=== PATIENT | male | born 1945 | race Caucasian/White ===

== ENCOUNTER 2016-11-10 15:01 | Inpatient (IN) | payer MEDICARE, OTHER ==
--- NOTE | 2016-11-10 17:38 | Emergency Department Report ---
HPI - General Chief Complaint: Seizure Time Seen by Provider: 11/10/16 16:59 - HPI HPI: This is a 71-year-old male who presents to the emergency department by EMS, sent in by his caregiver, with a complaint that it patient had a witnessed seizure last approximately 1 minute. The patient does not apparently have any history of seizures. Patient is a poor historian secondary to his dementia or possibly secondary to a postictal state. Patient does have a history of asthma, dementia, diabetes, hypertension and kidney stones. Patient is currently AAO 1. ED Past Medical Hx - Past Medical History Previous Medical History?: Yes Hx Hypertension: Yes Hx Diabetes: Yes Hx Asthma: Yes Hx Dementia: Yes Additional medical history: kidney stones - Social History Smoking Status: Never Smoker Substance Use Type: None ED Review of Systems ROS: Stated complaint: SEIZURES Other details as noted in HPI Comment: Unobtainable due to pts medical conditions Physical Exam - Physical Exam Vital Signs: Vital Signs 11/10/16 16:03 Temperature 98.1 F Pulse Rate 55 L Respiratory 16 Rate Blood Pressure 158/90 O2 Sat by Pulse 98 Oximetry Physical Exam: GENERAL: Patient appears agitated and confused. HEENT: Normocephalic. Atraumatic. Extraocular motions are intact. Patient has moist mucous membranes. Pupils equal reactive to light bilaterally. NECK: Supple. Trachea is midline. CHEST/LUNGS: Clear to auscultation. There is no respiratory distress noted. HEART/CARDIOVASCULAR: Regular. There is no tachycardia. There is no gallop rub or murmur. ABDOMEN: Abdomen is soft, nontender. Patient has normal bowel sounds. There is no abdominal distention. SKIN: Warm and dry. NEURO: Patient is awake but confused. AAO 1. Patient follows some commands. Withdraws to painful stimuli. MUSCULOSKELETAL: There is no tenderness or deformity. There is no limitation range of motion. There is no evidence of acute injury. ED Course Vital Signs 11/10/16 16:03 Temperature 98.1 F Pulse Rate 55 L Respiratory 16 Rate Blood Pressure 158/90 O2 Sat by Pulse 98 Oximetry ED Medical Decision Making - Lab Data Result diagrams: 11/10/16 18:10 11/10/16 18:10 - EKG Data -: EKG Interpreted by Wy EKG shows normal: sinus rhythm, axis, intervals, QRS complexes (right bundle- branch block), ST-T waves (nonspecific ST-T changes) Rate: normal - EKG Data When compared to previous EKG there are: previous EKG unavailable Interpretation: other (sinus rhythm, right bundle branch block) - Radiology Data Radiology results: report reviewed CT of the head does not show any acute process including no hemorrhage, mass, shift, diffuse edema or skull fracture. - Medical Decision Making 71-year-old male presents the emergency department sent in by his advertising display rotator after there was a witnessed seizure without a previous history of seizures. When I saw the patient he was awake but confused and appeared agitated. As his workup began the patient had another witnessed seizure. He was given 2 mg of Ativan and had a postictal period of about 45 minutes. It appears that he does have some history of dementia so confusion might be his baseline but there are definite was a postictal period where he was sleeping and/or less agitated. Patient labs are mostly unremarkable and do not seem to show any etiology of the patient's seizures. He was given IV Keppra as a loading dose. CT of the head does not show any bleed, shift, mass or any acute process. Urine drug screen is negative. There is no urinary tract infection. Patient will be admitted to hospital for further evaluation and treatment and has been accepted for admission by the hospitalist, Dr. Schmidt. - Differential Diagnosis epilepsy, brain bleed, CVA, hypoglycemia, [place] Critical Care Time: No Critical care attestation.: If time is entered above; I have spent that time in minutes in the direct care of this critically ill patient, excluding procedure time. ED Disposition Clinical Impression: Recurrent seizures Hypertension Qualifiers: Hypertension type: essential hypertension Qualified Code(s): I10 - Essential ( primary) hypertension Altered mental status Qualifiers: Altered mental status type: unspecified Qualified Code(s): R41.82 - Altered mental status, unspecified Disposition: OP ADMITTED IP TO THIS HOSP Is pt being admited?: Yes Condition: Stable Instructions: Hypertension (ED) Time of Disposition: 02:09
[2016-11-10] MEDS ORDERED: ATIVAN IV ONE ×2 (17:39→18:17)
[2016-11-10 18:24] LABS: Basophils % (Auto) 0.9 % (0.0-1.8); Eosinophils % (Auto) 0.4 % (0.0-4.3); Hematocrit 34.8 % (35.5-45.6); Hemoglobin 11.4 gm/dl (11.8-15.2); Mean Corpuscular HGB Conc 33 % (32-34); Mean Corpuscular Volume 78 fl (84-94); Platelet Count 279 K/mm3 (140-440); Red Blood Count 4.48 M/mm3 (3.65-5.03); Red Cell Distribution Width 19.2 % (13.2-15.2); White Blood Count 8.5 K/mm3 (4.5-11.0)
[2016-11-10 18:25] LABS: Mean Corpuscular Hemoglobin 26 pg (28-32)
[2016-11-10 18:47] LABS: Alanine Aminotransferase 7 units/L (7-56); Albumin 3.2 g/dL (3.9-5); Albumin/Globulin Ratio 0.8 %; Alkaline Phosphatase 68 units/L (35-129); Anion Gap 16 mmol/L; BUN/Creatinine Ratio 18.33; Bilirubin,Total 0.4 mg/dL (0.1-1.2); Blood Urea Nitrogen 11 mg/dL (9-20); Calcium 8.9 mg/dL (8.4-10.2); Carbon Dioxide 28 mmol/L (22-30); Chloride 93.4 mmol/L (98-107); Glucose 96 mg/dL (75-100); Potassium 3.4 mmol/L (3.6-5.0); Sodium 134 mmol/L (137-145); Total Protein 7.3 g/dL (6.3-8.2)
[2016-11-10 19:02] LABS: Urine Drugs of Abuse Note Disclamer
[2016-11-10 19:11] LABS: Bacteria,Urine 1+ /HPF (Negative); Bilirubin,Urine NEG (Negative); Blood,Urine SM (Negative); Ketones,Urine NEG (Negative); Leukocyte Esterase,Urine LG (Negative); Mucus,Urine FEW /HPF; Nitrite,Urine NEG (Negative); Protein,Urine <15 mg/dL mg/dL (Negative); Urobilinogen,Urine < 2.0 mg/dL (<2.0)
[2016-11-10] MEDS ORDERED: APRESOLINE IV ONE (19:23)
[2016-11-10] MEDS ORDERED: KEPPRA 1,000 MG/NS 0.75% 100ML 1,000 MG/100 ML BAG IV ONE (19:23)
[2016-11-10] MEDS ORDERED: ATIVAN ONE ×2 (22:09→22:45)
[2016-11-11] MEDS ORDERED: HALDOL IM ONE (00:08)
--- NOTE | 2016-11-11 01:56 | Cat Scan Report ---
FINAL REPORT PROCEDURE: CT HEAD/BRAIN WO CON TECHNIQUE: Computerized tomography of the head was performed without contrast material. HISTORY: Seizure COMPARISON: No prior studies are available for comparison. FINDINGS: Skull and scalp: Normal. Paranasal sinuses: Mild opacification of the ethmoid sinuses. Almost complete opacification of the right maxillary sinus.. Ventricles and subarachnoid spaces: Normal. Cerebrum: No evidence of hemorrhage, acute infarction or mass . Cerebellum and brainstem: No evidence of hemorrhage, acute infarction or mass. Vasculature: Normal. Comments: None. IMPRESSION: There is no evidence of an acute intracranial process. Moderate sinusitis as discussed.
[2016-11-11] MEDS ORDERED: MILK OF MAGNESIA PO PRN (03:03)
[2016-11-11] MEDS ORDERED: ZOFRAN IV PRN (03:03)
[2016-11-11] MEDS ORDERED: TYLENOL PO PRN (03:03)
[2016-11-11] MEDS ORDERED: DULCOLAX PR PRN (03:03)
[2016-11-11] MEDS ORDERED: ATIVAN IV PRN (03:03)
--- NOTE | 2016-11-11 03:06 | History and Physical Report ---
History of Present Illness Date of examination: 11/11/16 History of present illness: 71-year-old man with history of hypertension, diabetes, dementia ,asthma was brought to the emergency room because he had a seizure. While he was here in the emergency room he had another seizure, the patient is postictal, review of system is unobtainable. Patient was given IV Ativan, loaded with Keppra in the emergency room PAST SURGICAL HISTORY: Unknown SOCIAL HISTORY: Unknown FAMILY HISTORY: Unknown Medications and Allergies Allergies Allergy/AdvReac Type Severity Reaction Status Date / Time No Known Allergies Allergy Unverified 11/10/16 16:06 Exam - Physical Exam Narrative exam: Gen. appearance: Patient lying in bed, no apparent distress HEENT: Normocephalic, atraumatic, pupils equally round and reactive to light, unable to do extraocular movement , and no sclericterus,. No JVD or thyromegaly or nodule,neck supple, no carotid bruit ,mucous membranes moist, no exudate or erythema Heart: S1, S2, regular rate and rhythm Lungs: Clear to auscultation bilaterally, breathing comfortable Abdomen: Positive bowel sounds, nontender, nondistended, no organomegaly Extremity: No edema, cyanosis, clubbing Skin: No rash, nodules, warm, dry Neuro: Sedated - Constitutional Vitals: Temp Pulse Resp BP Pulse Ox 98.1 F 76 14 177/145 96 11/10/16 16:03 11/10/16 19:50 11/10/16 18:46 11/10/16 19:50 11/10/16 18:46 Results - Labs CBC & Chem 7: 11/10/16 18:10 11/10/16 18:10 Labs: Abnormal lab results 11/10/16 11/10/16 11/10/16 Range/Units 18:10 18:10 18:10 Hgb 11.4 L (11.8-15.2) gm/dl Hct 34.8 L (35.5-45.6) % MCV 78 L (84-94) fl MCH 26 L (28-32) pg RDW 19.2 H (13.2-15.2) % Lymph % (Auto) 12.3 L (13.4-35.0) % Lymph # 1.1 L (1.2-5.4) K/mm3 Seg Neutrophils % 79.2 H (40.0-70.0) % Sodium 134 L (137-145) mmol/L Potassium 3.4 L (3.6-5.0) mmol/L Chloride 93.4 L (98-107) mmol/L Creatinine 0.6 L (0.8-1.5) mg/dL Albumin 3.2 L (3.9-5) g/dL Salicylates < 0.3 L (2.8-20.0) mg/dL - Imaging and Cardiology CT Scan - head: report reviewed Assessment and Plan New-onset seizures Hypertension Dementia Asthma Diabetes Admits medicine Start IV Ativan as needed. Seizure, consult neurology Start DVT prophylaxis, check figer sticks and initiate insulin sliding scale IV hydralazine as stated for blood pressure control
[2016-11-11] MEDS ORDERED: ROCEPHIN/NS 1 GM/50 ML 1 GM/50 ML BAG IV ONE (03:10)
[2016-11-11] MEDS ORDERED: D50W (25GM) IV PRN (03:15)
--- NOTE | 2016-11-11 06:42 | Admit Criteria Form ---
Admission Criteria Documentation: SEIZURE Clinical Indications for Admission to Inpatient Care (Place 'X' for any and all applicable criteria): Admission is indicated for seizure and ANY ONE of the following(1)(2)(3)(4)(5): [X]I. Inpatient admission required rather than observation care (Also use Seizure: Observation Care Criteria as appropriate) because of ANY ONE of the following: [ ]a) Altered mental status that is severe or persistent [ ]b) New focal neurologic deficit that is severe or persistent [ ]c) Metabolic disorder (eg, hypoglycemia, hyponatremia) that is severe or persistent [X]d) Recurrent seizure [ ]e) Outpatient antiseizure regimen cannot be established (eg , patient cannot tolerate medication, initiation requires inpatient care) [ ]f) Need for ongoing intravenous infusion of antiseizure medication [ ]g) Cardiac arrhythmias of immediate concern [ ]h) Cerebral bleeding, hydrocephalus, or vasospasm monitoring (14) [ ]i) Increased intracranial pressure or cerebral edema monitoring (15) [ ]j) Other treatment or monitoring requiring inpatient admission [ ]II. Status epilepticus [A] or repetitive seizures not controlled with emergent treatment (6)(8) [ ]III. Brain disorder (eg, tumor, edema, and hydrocephalus) that requiring monitoring or intervention available only at inpatient level of care. [ ]IV. Brain insult (eg, severe trauma, stroke, drug toxicity, or withdrawal) that requires monitoring or intervention available only at inpatient level of care (10)(11) Extended stay beyond goal length of stay may be needed for (22) [ ]a) Complications of status epilepticus [ ]b) Refractory status epilepticus [ ]c) Etiology-specific therapy for conditions such as DRINK WAITER infection, head injury,eclampsia, severe metabolic abnormalities, and brain tumor [ ]d) Residual neurologic damage, [ ]e) Initiation of significant change to anticonvulsant treatment [ ]f) Older patients (65 years or older) [ ]g) Patient requiring intubation (eg, to protect airway) The original [facility] content created by [employer] has been revised. The portions of the content which have been revised are identified through the use of italic text or in bold, and [facility] [employer] has neither reviewed nor approved the modified material. All other unmodified content is copyright [facility] [employer]. Please see references footnoted in the original [facility] edition 2016 Admission Criteria Met: Yes
--- NOTE | 2016-11-11 10:41 | Progress Note ---
Assessment and Plan Assessment and plan: 1. New-onset seizures. Seizure precautions. Continue Keppra for now. Ativan for breakthrough seizures. Check EEG and consider MRI. Neurology consult pending. 2. Hypertension. Resume antihypertensive medications. 3. Diabetes mellitus type 2. Continue Accu-Cheks and sliding scale insulin. 4. Acute encephalopathy. Etiology secondary to #1. Rule out infectious etiology. Supportive care. 5. Asthma. Stable. History Interval history: 71-year-old man with history of hypertension, diabetes, dementia ,asthma was brought to the emergency room because he had a seizure. While he was here in the emergency room he had another seizure, the patient is postictal, review of system is unobtainable. Patient was given IV Ativan, loaded with Keppra in the emergency room Hospitalist Physical - Constitutional Vitals: Temp Pulse Resp BP Pulse Ox 97.5 F L 50 L 18 159/78 99 11/11/16 10:13 11/11/16 10:13 11/11/16 10:13 11/11/16 10:13 11/11/16 10:13 General appearance: Present: no acute distress, well-nourished - EENT Eyes: Present: PERRL, EOM intact ENT: hearing intact, clear oral mucosa, dentition normal - Neck Neck: Present: supple, normal ROM - Respiratory Respiratory effort: normal Respiratory: bilateral: CTA - Cardiovascular Rhythm: regular Heart Sounds: Present: S1 & S2. Absent: gallop, rub - Extremities Extremities: no ischemia, No edema, Full ROM - Abdominal General gastrointestinal: soft, non-tender, non-distended, normal bowel sounds - Integumentary Integumentary: Present: clear, warm, dry - Neurologic Neurologic: CNII-XII intact, moves all extremities, other (somnolent and postictal) Results - Labs CBC & Chem 7: 11/10/16 18:10 11/10/16 18:10 Labs: Laboratory Last Values WBC 8.5 K/mm3 (4.5-11.0) 11/10/16 18:10 RBC 4.48 M/mm3 (3.65-5.03) 11/10/16 18:10 Hgb 11.4 gm/dl (11.8-15.2) L 11/10/16 18:10 Hct 34.8 % (35.5-45.6) L 11/10/16 18:10 MCV 78 fl (84-94) L 11/10/16 18:10 MCH 26 pg (28-32) L 11/10/16 18:10 MCHC 33 % (32-34) 11/10/16 18:10 RDW 19.2 % (13.2-15.2) H 11/10/16 18:10 Plt Count 279 K/mm3 (140-440) 11/10/16 18:10 Lymph % (Auto) 12.3 % (13.4-35.0) L 11/10/16 18:10 [place] % (Auto) 7.2 % (0.0-7.3) 11/10/16 18:10 Eos % (Auto) 0.4 % (0.0-4.3) 11/10/16 18:10 Baso % (Auto) 0.9 % (0.0-1.8) 11/10/16 18:10 Lymph # 1.1 K/mm3 (1.2-5.4) L 11/10/16 18:10 [place] # 0.6 K/mm3 (0.0-0.8) 11/10/16 18:10 Eos # 0.0 K/mm3 (0.0-0.4) 11/10/16 18:10 Baso # 0.1 K/mm3 (0.0-0.1) 11/10/16 18:10 Seg Neutrophils % 79.2 % (40.0-70.0) H 11/10/16 18:10 Seg Neutrophils # 6.8 K/mm3 (1.8-7.7) 11/10/16 18:10 Sodium 134 mmol/L (137-145) L 11/10/16 18:10 Potassium 3.4 mmol/L (3.6-5.0) L 11/10/16 18:10 Chloride 93.4 mmol/L (98-107) L 11/10/16 18:10 Carbon Dioxide 28 mmol/L (22-30) 11/10/16 18:10 Anion Gap 16 mmol/L 11/10/16 18:10 BUN 11 mg/dL (9-20) 11/10/16 18:10 Creatinine 0.6 mg/dL (0.8-1.5) L 11/10/16 18:10 Estimated GFR > 60 ml/min 11/10/16 18:10 BUN/Creatinine Ratio 18.33 % 11/10/16 18:10 Glucose 96 mg/dL (75-100) 11/10/16 18:10 Calcium 8.9 mg/dL (8.4-10.2) 11/10/16 18:10 Total Bilirubin 0.4 mg/dL (0.1-1.2) 11/10/16 18:10 AST 16 units/L (5-40) 11/10/16 18:10 ALT 7 units/L (7-56) 11/10/16 18:10 Alkaline Phosphatase 68 units/L (35-129) 11/10/16 18:10 Total Protein 7.3 g/dL (6.3-8.2) 11/10/16 18:10 Albumin 3.2 g/dL (3.9-5) L 11/10/16 18:10 Albumin/Globulin Ratio 0.8 % 11/10/16 18:10 TSH 0.805 mlU/mL (0.270-4.200) 11/10/16 18:10 Urine Color Straw (Yellow) 11/10/16 18:58 Urine Turbidity Slightly-cloudy (Clear) 11/10/16 18:58 Urine pH 7.0 (5.0-7.0) 11/10/16 18:58 Ur Specific [place] 1.003 (1.003-1.030) 11/10/16 18:58 Urine Protein <15 mg/dl mg/dL (Negative) 11/10/16 18:58 Urine Glucose (UA) Neg mg/dL (Negative) 11/10/16 18:58 Urine Ketones Neg mg/dL (Negative) 11/10/16 18:58 Urine Blood Sm (Negative) 11/10/16 18:58 Urine Nitrite Neg (Negative) 11/10/16 18:58 Urine Bilirubin Neg (Negative) 11/10/16 18:58 Urine Urobilinogen < 2.0 mg/dL (<2.0) 11/10/16 18:58 Ur Leukocyte Esterase Lg (Negative) 11/10/16 18:58 Urine WBC (Auto) 2.0 /HPF (0.0-6.0) 11/10/16 18:58 Urine RBC (Auto) 2.0 /HPF (0.0-6.0) 11/10/16 18:58 U Epithel Cells (Auto) 5.0 /HPF (0-13.0) 11/10/16 18:58 Urine Bacteria (Auto) 1+ /HPF (Negative) 11/10/16 18:58 Urine Mucus Few /HPF 11/10/16 18:58 Salicylates < 0.3 mg/dL (2.8-20.0) L 11/10/16 18:10 Urine Opiates Screen Presumptive negative 11/10/16 18:58 Urine Methadone Screen Presumptive negative 11/10/16 18:58 Ur Barbiturates Screen Presumptive negative 11/10/16 18:58 Ur Phencyclidine Scrn Presumptive negative 11/10/16 18:58 Ur Amphetamines Screen Presumptive negative 11/10/16 18:58 U Benzodiazepines Scrn Presumptive negative 11/10/16 18:58 Urine Cocaine Screen Presumptive negative 11/10/16 18:58 U Marijuana (THC) Screen Presumptive negative 11/10/16 18:58 Drugs of Abuse Note Disclamer 11/10/16 18:58 Plasma/Serum Alcohol < 0.01 gm% (0-0.07) 11/10/16 18:10
--- NOTE | 2016-11-11 11:18 | Consultation ---
History of Present Illness Consult date: 11/11/16 Requesting physician: SHANTEL ALANIZ Reason for Consult: seizure Chief complaint: AMS limits direct hx History of present illness: 71-year-old man with history of hypertension, diabetes, dementia ? baseline was brought to the emergency room because he had a seizure reportedly. Details are scarce as they are not specifically documented. While he was here in the emergency room he reportedly had another seizure. The pt received Ativan and Keppra load. There were no clear aggravating, relieving or temporal factors. Severity was such to cause LOC. Duration is unclear. Past History Past Medical History: hypertension, other (dementia, ) Past Surgical History: Other (unable to obtain d/t AMS) Social history: other (unable to obtain d/t AMS) Family history: other (unabel to obtain d/t AMS) Medications and Allergies Allergies Allergy/AdvReac Type Severity Reaction Status Date / Time No Known Allergies Allergy Unverified 11/10/16 16:06 Active Meds: Active Medications Acetaminophen (Tylenol) 650 mg PO Q4H PRN PRN Reason: Pain MILD(1-3)/Fever >100.5/PHELPS Bisacodyl (Dulcolax) 10 mg CA QDAY PRN PRN Reason: Constipation unrelieved by MOM Dextrose (D50w (25gm)) 50 ml IV PRN PRN PRN Reason: Hypoglycemia Enoxaparin Sodium (Lovenox) 40 mg SUB-Q QDAY ANNETTE Hydralazine HCl (Apresoline) 5 mg IV Q6H PRN PRN Reason: Hypertension Ceftriaxone Sodium (Rocephin/Ns 1 Gm/50 Ml) 1 gm in 50 mls @ 100 mls/hr IV Q24HR ANNETTE Lorazepam (Ativan) 1 mg IV Q4H PRN PRN Reason: Seizures Magnesium Hydroxide (Milk Of Magnesia) 30 ml PO Q4H PRN PRN Reason: Constipation Ondansetron HCl (Zofran) 4 mg IV Q8H PRN PRN Reason: N/V unrelieved by Reglan Review of Systems ROS unobtainable: due to mental status Physical Examination - Vital Signs Vital Signs: Vital Signs Temp Pulse Resp BP Pulse Ox 98.1 F 55 L 16 158/90 98 11/10/16 16:03 11/10/16 16:03 11/10/16 16:03 11/10/16 16:03 11/10/16 16:03 - Constitutional General appearance: uncomfortable, acutely ill, chronically ill - EENT EENT: Present: ATNC, PERRL, mucous membranes dry, hearing intact, vision intact - Respiratory Respiratory: Present: chest non-tender, no respiratory distress, decreased breath sounds - Cardiovascular Cardiovascular: Present: regular rate Extremities: Present: no peripheral edema bilatateraly, no ischemia or petechiae - Gastrointestinal Gastrointestinal: Present: normoactive bowel sounds, soft, non-distended - Integumentary Integumentary: Present: normal - Neurologic Cranial nerve examination: PERRL, EOMI, VFF, tongue midline, intact, intact shoulder shrug, intact cough reflex, Intact Vestibulo-ocular r, intact corneal reflex, facial droop (? on R subtle) Speech examination: intact, other (slowed speech, drowsiness,) Sensorimotor examination: intact Motor examination - right side: 4/5: biceps, triceps, wrist flexion, wrist extension, mail service coordinator, hip flexors, knee extensors, dorsiflexion, toe extension (EHL) , plantarflexion Motor examination - left side: 4/5: biceps, triceps, wrist flexion, wrist extension, mail service coordinator, hip flexors, knee extensors, dorsiflexion, toe extension (EHL) , plantarflexion Detailed sensory examination: intact, pain Reflexes: 0: ankle, 1+: bicep, knee, tricep - Musculoskeletal Musculoskeletal: Present: other (limited ROM and marked swelling around R ankle) - Psychiatric Psychiatric: Present: mood/affect appropriate Results - Laboratory Findings CBC and BMP: 11/10/16 18:10 11/10/16 18:10 Assessment and Plan 71 YO M Hx HTN and dementia unclear baseline p/w reported seizure x 2, the second of which reportedly in ED. Neuro exam suggest post ictal/encephalopathy as drowsy-stuporous oriented to name but followed intermittent peripheral commands. Unclear etiology for first lifetime documented reported seizure. CTH nonacute. EtOH/Tox screen neg. UA borderline positive ? provoked from UTI. Recs: 1. Telemetry bed w/ Q4 hour neuro checks & Sz precautions 2. Brain imaging: MRI Brain +/- Navin Seizure Protocol 3. Labs: Serum/Urine Tox, UA/UCx, Electrolytes especially Na, Ca, Mg, and Glucose, TSH/Vit B12/Ammonia and correct as necessary 4. Cont Infectious work up/medical management for UTI, PNA, cellulitis, bacteremia, etc. 5. Avoid hyponatremia, hypo/hyper-calcemia, hypo/hyperglycemia, acidosis, hypoxia/hypoxemia, hypercarbia/hypercapnia 6. Avoid institution of any psychoactive medications (e.g. antihistamines, anticholinergics, BZD, hypnotics, opiates) as able unless low doses of low potency antipsychotic needed for behavioral issues complicating medical care 7. AED therapy: defer @ this time but load w/ Keppra 1000mg BID if recurrent seizure. 8. Avoid meds that can lower sz threshold e.g. Tramadol, fluroquinolones, carbapenems 9. Pt will be advised of [place] driving regulations: report date of presumed Seizure/unexplained loss of consciousness/awareness spell to [facility], refrain from operating a motor vehicle for 6 months after this date, and avoid unsupervised activity particularly around water or heights
[2016-11-12 06:18] LABS: Eosinophils % (Auto) 1.3 % (0.0-4.3); Hematocrit 35.6 % (35.5-45.6); Hemoglobin 11.7 gm/dl (11.8-15.2); Mean Corpuscular HGB Conc 33 % (32-34); Mean Corpuscular Hemoglobin 25 pg (28-32); Mean Corpuscular Volume 77 fl (84-94); Platelet Count 252 K/mm3 (140-440); Red Blood Count 4.66 M/mm3 (3.65-5.03); Red Cell Distribution Width 19.3 % (13.2-15.2); White Blood Count 5.9 K/mm3 (4.5-11.0)
[2016-11-12 06:35] LABS: Anion Gap 16 mmol/L; Blood Urea Nitrogen 14 mg/dL (9-20); Calcium 8.7 mg/dL (8.4-10.2); Carbon Dioxide 28 mmol/L (22-30); Chloride 98.1 mmol/L (98-107); Glucose 113 mg/dL (75-100); Sodium 139 mmol/L (137-145)
[2016-11-12 07:18] LABS: Potassium 2.7 mmol/L (3.6-5.0)
[2016-11-12] MEDS ORDERED: K-DUR PO ONE (09:30)
[2016-11-12] MEDS: ROCEPHIN/NS 1 GM/50 ML 1 GM/50 ML BAG IV SCH (10:25)
[2016-11-12] MEDS: KCL 10MEQ/100ML 10 MEQ/100 ML BAG IV SCH ×4 (12:53→17:28)
[2016-11-12] MEDS ORDERED: NACL 0.9% 500 ML 500 ML IV ONE (13:23)
[2016-11-12] MEDS: LOVENOX SUB-Q SCH (13:50)
--- NOTE | 2016-11-12 22:23 | Progress Note ---
Hospitalist Physical - Constitutional Vitals: Temp Pulse Resp BP Pulse Ox 98.0 F 62 20 152/85 98 11/12/16 16:00 11/12/16 16:00 11/12/16 16:00 11/12/16 16:00 11/12/16 16:00 General appearance: Present: no acute distress, well-nourished Results - Labs CBC & Chem 7: 11/12/16 05:42 11/12/16 05:42 Labs: Laboratory Last Values WBC 5.9 K/mm3 (4.5-11.0) 11/12/16 05:42 RBC 4.66 M/mm3 (3.65-5.03) 11/12/16 05:42 Hgb 11.7 gm/dl (11.8-15.2) L 11/12/16 05:42 Hct 35.6 % (35.5-45.6) 11/12/16 05:42 MCV 77 fl (84-94) L 11/12/16 05:42 MCH 25 pg (28-32) L 11/12/16 05:42 MCHC 33 % (32-34) 11/12/16 05:42 RDW 19.3 % (13.2-15.2) H 11/12/16 05:42 Plt Count 252 K/mm3 (140-440) 11/12/16 05:42 Lymph % (Auto) 19.2 % (13.4-35.0) 11/12/16 05:42 [place] % (Auto) 8.7 % (0.0-7.3) H 11/12/16 05:42 Eos % (Auto) 1.3 % (0.0-4.3) 11/12/16 05:42 Baso % (Auto) 1.0 % (0.0-1.8) 11/12/16 05:42 Lymph # 1.1 K/mm3 (1.2-5.4) L 11/12/16 05:42 [place] # 0.5 K/mm3 (0.0-0.8) 11/12/16 05:42 Eos # 0.1 K/mm3 (0.0-0.4) 11/12/16 05:42 Baso # 0.1 K/mm3 (0.0-0.1) 11/12/16 05:42 Seg Neutrophils % 69.8 % (40.0-70.0) 11/12/16 05:42 Seg Neutrophils # 4.1 K/mm3 (1.8-7.7) 11/12/16 05:42 Sodium 139 mmol/L (137-145) 11/12/16 05:42 Potassium 2.7 mmol/L (3.6-5.0) L* D 11/12/16 05:42 Chloride 98.1 mmol/L (98-107) 11/12/16 05:42 Carbon Dioxide 28 mmol/L (22-30) 11/12/16 05:42 Anion Gap 16 mmol/L 11/12/16 05:42 BUN 14 mg/dL (9-20) 11/12/16 05:42 Creatinine 0.7 mg/dL (0.8-1.5) L 11/12/16 05:42 Estimated GFR > 60 ml/min 11/12/16 05:42 BUN/Creatinine Ratio 20.00 % 11/12/16 05:42 Glucose 113 mg/dL (75-100) H 11/12/16 05:42 POC Glucose 174 (70-105) H 11/11/16 16:02 Calcium 8.7 mg/dL (8.4-10.2) 11/12/16 05:42 Total Bilirubin 0.4 mg/dL (0.1-1.2) 11/10/16 18:10 AST 16 units/L (5-40) 11/10/16 18:10 ALT 7 units/L (7-56) 11/10/16 18:10 Alkaline Phosphatase 68 units/L (35-129) 11/10/16 18:10 Total Protein 7.3 g/dL (6.3-8.2) 11/10/16 18:10 Albumin 3.2 g/dL (3.9-5) L 11/10/16 18:10 Albumin/Globulin Ratio 0.8 % 11/10/16 18:10 TSH 0.805 mlU/mL (0.270-4.200) 11/10/16 18:10 Urine Color Straw (Yellow) 11/10/16 18:58 Urine Turbidity Slightly-cloudy (Clear) 11/10/16 18:58 Urine pH 7.0 (5.0-7.0) 11/10/16 18:58 Ur Specific [place] 1.003 (1.003-1.030) 11/10/16 18:58 Urine Protein <15 mg/dl mg/dL (Negative) 11/10/16 18:58 Urine Glucose (UA) Neg mg/dL (Negative) 11/10/16 18:58 Urine Ketones Neg mg/dL (Negative) 11/10/16 18:58 Urine Blood Sm (Negative) 11/10/16 18:58 Urine Nitrite Neg (Negative) 11/10/16 18:58 Urine Bilirubin Neg (Negative) 11/10/16 18:58 Urine Urobilinogen < 2.0 mg/dL (<2.0) 11/10/16 18:58 Ur Leukocyte Esterase Lg (Negative) 11/10/16 18:58 Urine WBC (Auto) 2.0 /HPF (0.0-6.0) 11/10/16 18:58 Urine RBC (Auto) 2.0 /HPF (0.0-6.0) 11/10/16 18:58 U Epithel Cells (Auto) 5.0 /HPF (0-13.0) 11/10/16 18:58 Urine Bacteria (Auto) 1+ /HPF (Negative) 11/10/16 18:58 Urine Mucus Few /HPF 11/10/16 18:58 Salicylates < 0.3 mg/dL (2.8-20.0) L 11/10/16 18:10 Urine Opiates Screen Presumptive negative 11/10/16 18:58 Urine Methadone Screen Presumptive negative 11/10/16 18:58 Ur Barbiturates Screen Presumptive negative 11/10/16 18:58 Ur Phencyclidine Scrn Presumptive negative 11/10/16 18:58 Ur Amphetamines Screen Presumptive negative 11/10/16 18:58 U Benzodiazepines Scrn Presumptive negative 11/10/16 18:58 Urine Cocaine Screen Presumptive negative 11/10/16 18:58 U Marijuana (THC) Screen Presumptive negative 11/10/16 18:58 Drugs of Abuse Note Disclamer 11/10/16 18:58 Plasma/Serum Alcohol < 0.01 gm% (0-0.07) 11/10/16 18:10
[2016-11-13 08:40] LABS: Potassium TNR mmol/L (3.6-5.0)
[2016-11-13 08:41] LABS: Anion Gap TNR mmol/L; BUN/Creatinine Ratio TNR; Blood Urea Nitrogen TNR mg/dL (9-20); Carbon Dioxide TNR mmol/L (22-30); Chloride TNR mmol/L (98-107); Sodium TNR mmol/L (137-145)
[2016-11-13 08:42] LABS: Calcium TNR mg/dL (8.4-10.2); Glucose TNR mg/dL (75-100)
[2016-11-13] MEDS: ROCEPHIN/NS 1 GM/50 ML 1 GM/50 ML BAG IV SCH (09:50)
--- NOTE | 2016-11-13 09:50 | Event Note ---
Date: 11/13/16 I attempted to see this patient between my scheduled coverage time of 8 AM-12 PM but they were not present in the room. I will return to staff in follow up . MRI Brain still pending.
[2016-11-13] MEDS: LOVENOX SUB-Q SCH ×2 (09:51→09:59)
--- NOTE | 2016-11-13 19:21 | Progress Note ---
Hospitalist Physical - Constitutional Vitals: Temp Pulse Resp BP Pulse Ox 98.3 F 71 20 194/92 99 11/13/16 16:00 11/13/16 16:00 11/13/16 16:00 11/13/16 16:00 11/13/16 09:24 General appearance: Present: no acute distress, well-nourished Results - Labs CBC & Chem 7: 11/12/16 05:42 11/13/16 06:56 Labs: Laboratory Last Values WBC 5.9 K/mm3 (4.5-11.0) 11/12/16 05:42 RBC 4.66 M/mm3 (3.65-5.03) 11/12/16 05:42 Hgb 11.7 gm/dl (11.8-15.2) L 11/12/16 05:42 Hct 35.6 % (35.5-45.6) 11/12/16 05:42 MCV 77 fl (84-94) L 11/12/16 05:42 MCH 25 pg (28-32) L 11/12/16 05:42 MCHC 33 % (32-34) 11/12/16 05:42 RDW 19.3 % (13.2-15.2) H 11/12/16 05:42 Plt Count 252 K/mm3 (140-440) 11/12/16 05:42 Lymph % (Auto) 19.2 % (13.4-35.0) 11/12/16 05:42 [place] % (Auto) 8.7 % (0.0-7.3) H 11/12/16 05:42 Eos % (Auto) 1.3 % (0.0-4.3) 11/12/16 05:42 Baso % (Auto) 1.0 % (0.0-1.8) 11/12/16 05:42 Lymph # 1.1 K/mm3 (1.2-5.4) L 11/12/16 05:42 [place] # 0.5 K/mm3 (0.0-0.8) 11/12/16 05:42 Eos # 0.1 K/mm3 (0.0-0.4) 11/12/16 05:42 Baso # 0.1 K/mm3 (0.0-0.1) 11/12/16 05:42 Seg Neutrophils % 69.8 % (40.0-70.0) 11/12/16 05:42 Seg Neutrophils # 4.1 K/mm3 (1.8-7.7) 11/12/16 05:42 Sodium TNR 11/13/16 06:56 Potassium TNR 11/13/16 06:56 Chloride TNR 11/13/16 06:56 Carbon Dioxide TNR 11/13/16 06:56 Anion Gap TNR 11/13/16 06:56 BUN TNR 11/13/16 06:56 Creatinine TNR 11/13/16 06:56 Estimated GFR TNR 11/13/16 06:56 BUN/Creatinine Ratio TNR 11/13/16 06:56 Glucose TNR 11/13/16 06:56 POC Glucose 102 (70-105) 11/13/16 05:55 Calcium TNR 11/13/16 06:56 Total Bilirubin 0.4 mg/dL (0.1-1.2) 11/10/16 18:10 AST 16 units/L (5-40) 11/10/16 18:10 ALT 7 units/L (7-56) 11/10/16 18:10 Alkaline Phosphatase 68 units/L (35-129) 11/10/16 18:10 Total Protein 7.3 g/dL (6.3-8.2) 11/10/16 18:10 Albumin 3.2 g/dL (3.9-5) L 11/10/16 18:10 Albumin/Globulin Ratio 0.8 % 11/10/16 18:10 TSH 0.805 mlU/mL (0.270-4.200) 11/10/16 18:10 Urine Color Straw (Yellow) 11/10/16 18:58 Urine Turbidity Slightly-cloudy (Clear) 11/10/16 18:58 Urine pH 7.0 (5.0-7.0) 11/10/16 18:58 Ur Specific [place] 1.003 (1.003-1.030) 11/10/16 18:58 Urine Protein <15 mg/dl mg/dL (Negative) 11/10/16 18:58 Urine Glucose (UA) Neg mg/dL (Negative) 11/10/16 18:58 Urine Ketones Neg mg/dL (Negative) 11/10/16 18:58 Urine Blood Sm (Negative) 11/10/16 18:58 Urine Nitrite Neg (Negative) 11/10/16 18:58 Urine Bilirubin Neg (Negative) 11/10/16 18:58 Urine Urobilinogen < 2.0 mg/dL (<2.0) 11/10/16 18:58 Ur Leukocyte Esterase Lg (Negative) 11/10/16 18:58 Urine WBC (Auto) 2.0 /HPF (0.0-6.0) 11/10/16 18:58 Urine RBC (Auto) 2.0 /HPF (0.0-6.0) 11/10/16 18:58 U Epithel Cells (Auto) 5.0 /HPF (0-13.0) 11/10/16 18:58 Urine Bacteria (Auto) 1+ /HPF (Negative) 11/10/16 18:58 Urine Mucus Few /HPF 11/10/16 18:58 Salicylates < 0.3 mg/dL (2.8-20.0) L 11/10/16 18:10 Urine Opiates Screen Presumptive negative 11/10/16 18:58 Urine Methadone Screen Presumptive negative 11/10/16 18:58 Ur Barbiturates Screen Presumptive negative 11/10/16 18:58 Ur Phencyclidine Scrn Presumptive negative 11/10/16 18:58 Ur Amphetamines Screen Presumptive negative 11/10/16 18:58 U Benzodiazepines Scrn Presumptive negative 11/10/16 18:58 Urine Cocaine Screen Presumptive negative 11/10/16 18:58 U Marijuana (THC) Screen Presumptive negative 11/10/16 18:58 Drugs of Abuse Note Disclamer 11/10/16 18:58 Plasma/Serum Alcohol < 0.01 gm% (0-0.07) 11/10/16 18:10
[2016-11-14 05:15] LABS: Anion Gap 15 mmol/L; BUN/Creatinine Ratio 23.33; Blood Urea Nitrogen 14 mg/dL (9-20); Calcium 8.9 mg/dL (8.4-10.2); Carbon Dioxide 29 mmol/L (22-30); Chloride 99.3 mmol/L (98-107); Glucose 102 mg/dL (75-100); Potassium 3.4 mmol/L (3.6-5.0); Sodium 140 mmol/L (137-145)
[2016-11-14] MEDS: ROCEPHIN/NS 1 GM/50 ML 1 GM/50 ML BAG IV SCH (09:09)
[2016-11-14] MEDS: APRESOLINE IV PRN (09:18)
[2016-11-14] MEDS: LOVENOX SUB-Q SCH (09:19)
--- NOTE | 2016-11-14 09:58 | Progress Note ---
Assessment and Plan 71 YO M Hx HTN and dementia unclear baseline p/w reported seizure x 2, the second of which reportedly in ED. Neuro exam suggested post ictal/ encephalopathy as drowsy-stuporous oriented to name but followed intermittent peripheral commands but on 11/14 apparently near return to baseline w/o recurrent seizure. Unclear etiology for first lifetime documented reported seizure. CTH nonacute. EtOH/Tox screen neg. UA borderline positive ? provoked from UTI. Recs: 1. Telemetry bed w/ Q4 hour neuro checks & Sz precautions 2. Brain imaging: MRI Brain +/- Navin Seizure Protocol 3. Labs: Serum/Urine Tox, UA/UCx, Electrolytes especially Na, Ca, Mg, and Glucose, TSH/Vit B12/Ammonia and correct as necessary 4. Cont Infectious work up/medical management for UTI, PNA, cellulitis, bacteremia, etc. 5. Avoid hyponatremia, hypo/hyper-calcemia, hypo/hyperglycemia, acidosis, hypoxia/hypoxemia, hypercarbia/hypercapnia 6. Avoid institution of any psychoactive medications (e.g. antihistamines, anticholinergics, BZD, hypnotics, opiates) as able unless low doses of low potency antipsychotic needed for behavioral issues complicating medical care 7. AED therapy: defer @ this time but load w/ Keppra 1000mg BID if any recurrent seizure. 8. Avoid meds that can lower sz threshold e.g. Tramadol, fluroquinolones, carbapenems 9. Pt will be advised of [place] driving regulations: report date of presumed Seizure/unexplained loss of consciousness/awareness spell to [facility], refrain from operating a motor vehicle for 6 months after this date, and avoid unsupervised activity particularly around water or heights Subjective Date of service: 11/14/16 Principal diagnosis: ? seizures Interval history: no recurrent seizures. no pt complaints Objective - Vital Sign Vital Signs - 12hr 11/13/16 11/13/16 11/14/16 22:00 23:20 07:00 Temperature 97.9 F 97.8 F Pulse Rate [ 72 Left Radial] Pulse Rate [ 69 Right Radial] Respiratory 20 18 Rate Blood Pressure Blood Pressure 182/80 [Left Arm] Blood Pressure 198/90 [Right Arm] O2 Sat by Pulse 98 92 94 Oximetry 11/14/16 09:18 Temperature Pulse Rate [ Left Radial] Pulse Rate [ Right Radial] Respiratory Rate Blood Pressure 185/80 Blood Pressure [Left Arm] Blood Pressure [Right Arm] O2 Sat by Pulse Oximetry - General Apperance Constitutional: comfortable - EENT EENT: ATNC, PERRL, mucous membranes dry, hearing intact, vision intact - Respiratory Respiratory: chest non-tender, no respiratory distress - Cardiovascular Cardiovascular: regular rate Extremities: no peripheral edema bilat, no ischemia or petechiae - Gastrointestinal Gastrointestinal: soft, non-distended - Integumentary Integumentary: normal - Neurologic Cranial nerve examination: PERRL, EOMI, VFF, V1/V2/V3 grossly intact, tongue midline, intact, intact shoulder shrug, intact cough reflex, Intact Vestibulo- ocular r, intact corneal reflex, facial droop (on R @ rest but full activation) , normal palatal elevation Speech examination: intact Detailed motor examination: grossly full strength in Motor examination - right side: 5/5: biceps, triceps, wrist flexion, wrist extension, curtain stretcher assembler, hip flexors, knee extensors, dorsiflexion, toe extension (EHL) , plantarflexion Motor examination - left side: 5/5: biceps, triceps, wrist flexion, wrist extension, curtain stretcher assembler, hip flexors, knee extensors, dorsiflexion, toe extension (EHL) , plantarflexion Reflex and gait examination: intact Reflexes: 0: ankle, 2+: bicep, knee, tricep - Musculoskeletal Musculoskeletal: fluid collection (R ankle), no pain, normal range of motion - Psychiatric Psychiatric: mood/affect appropriate, cooperative - Laboratory Findings CBC and BMP: 11/12/16 05:42 11/14/16 04:27 Abnormal Lab Findings: Abnormal Labs 11/11/16 11/12/16 11/12/16 16:02 05:42 05:42 Hgb 11.7 L MCV 77 L MCH 25 L RDW 19.3 H [place] % (Auto) 8.7 H Lymph # 1.1 L Potassium 2.7 L* D Creatinine 0.7 L Glucose 113 H POC Glucose 174 H 11/14/16 04:27 Hgb MCV MCH RDW [place] % (Auto) Lymph # Potassium 3.4 L D Creatinine 0.6 L Glucose 102 H POC Glucose
--- NOTE | 2016-11-14 23:25 | Progress Note ---
Hospitalist Physical - Constitutional Vitals: Temp Pulse Resp BP Pulse Ox 97.8 F 69 28 H 185/80 94 11/14/16 07:00 11/14/16 07:00 11/14/16 13:30 11/14/16 09:18 11/14/16 10:00 General appearance: Present: no acute distress, well-nourished Results - Labs CBC & Chem 7: 11/12/16 05:42 11/14/16 04:27 Labs: Laboratory Last Values WBC 5.9 K/mm3 (4.5-11.0) 11/12/16 05:42 RBC 4.66 M/mm3 (3.65-5.03) 11/12/16 05:42 Hgb 11.7 gm/dl (11.8-15.2) L 11/12/16 05:42 Hct 35.6 % (35.5-45.6) 11/12/16 05:42 MCV 77 fl (84-94) L 11/12/16 05:42 MCH 25 pg (28-32) L 11/12/16 05:42 MCHC 33 % (32-34) 11/12/16 05:42 RDW 19.3 % (13.2-15.2) H 11/12/16 05:42 Plt Count 252 K/mm3 (140-440) 11/12/16 05:42 Lymph % (Auto) 19.2 % (13.4-35.0) 11/12/16 05:42 [place] % (Auto) 8.7 % (0.0-7.3) H 11/12/16 05:42 Eos % (Auto) 1.3 % (0.0-4.3) 11/12/16 05:42 Baso % (Auto) 1.0 % (0.0-1.8) 11/12/16 05:42 Lymph # 1.1 K/mm3 (1.2-5.4) L 11/12/16 05:42 [place] # 0.5 K/mm3 (0.0-0.8) 11/12/16 05:42 Eos # 0.1 K/mm3 (0.0-0.4) 11/12/16 05:42 Baso # 0.1 K/mm3 (0.0-0.1) 11/12/16 05:42 Seg Neutrophils % 69.8 % (40.0-70.0) 11/12/16 05:42 Seg Neutrophils # 4.1 K/mm3 (1.8-7.7) 11/12/16 05:42 Sodium 140 mmol/L (137-145) 11/14/16 04:27 Potassium 3.4 mmol/L (3.6-5.0) L D 11/14/16 04:27 Chloride 99.3 mmol/L (98-107) 11/14/16 04:27 Carbon Dioxide 29 mmol/L (22-30) 11/14/16 04:27 Anion Gap 15 mmol/L 11/14/16 04:27 BUN 14 mg/dL (9-20) 11/14/16 04:27 Creatinine 0.6 mg/dL (0.8-1.5) L 11/14/16 04:27 Estimated GFR > 60 ml/min 11/14/16 04:27 BUN/Creatinine Ratio 23.33 % 11/14/16 04:27 Glucose 102 mg/dL (75-100) H 11/14/16 04:27 POC Glucose 77 (70-105) 11/14/16 21:30 Calcium 8.9 mg/dL (8.4-10.2) 11/14/16 04:27 Total Bilirubin 0.4 mg/dL (0.1-1.2) 11/10/16 18:10 AST 16 units/L (5-40) 11/10/16 18:10 ALT 7 units/L (7-56) 11/10/16 18:10 Alkaline Phosphatase 68 units/L (35-129) 11/10/16 18:10 Total Protein 7.3 g/dL (6.3-8.2) 11/10/16 18:10 Albumin 3.2 g/dL (3.9-5) L 11/10/16 18:10 Albumin/Globulin Ratio 0.8 % 11/10/16 18:10 TSH 0.805 mlU/mL (0.270-4.200) 11/10/16 18:10 Urine Color Straw (Yellow) 11/10/16 18:58 Urine Turbidity Slightly-cloudy (Clear) 11/10/16 18:58 Urine pH 7.0 (5.0-7.0) 11/10/16 18:58 Ur Specific [place] 1.003 (1.003-1.030) 11/10/16 18:58 Urine Protein <15 mg/dl mg/dL (Negative) 11/10/16 18:58 Urine Glucose (UA) Neg mg/dL (Negative) 11/10/16 18:58 Urine Ketones Neg mg/dL (Negative) 11/10/16 18:58 Urine Blood Sm (Negative) 11/10/16 18:58 Urine Nitrite Neg (Negative) 11/10/16 18:58 Urine Bilirubin Neg (Negative) 11/10/16 18:58 Urine Urobilinogen < 2.0 mg/dL (<2.0) 11/10/16 18:58 Ur Leukocyte Esterase Lg (Negative) 11/10/16 18:58 Urine WBC (Auto) 2.0 /HPF (0.0-6.0) 11/10/16 18:58 Urine RBC (Auto) 2.0 /HPF (0.0-6.0) 11/10/16 18:58 U Epithel Cells (Auto) 5.0 /HPF (0-13.0) 11/10/16 18:58 Urine Bacteria (Auto) 1+ /HPF (Negative) 11/10/16 18:58 Urine Mucus Few /HPF 11/10/16 18:58 Salicylates < 0.3 mg/dL (2.8-20.0) L 11/10/16 18:10 Urine Opiates Screen Presumptive negative 11/10/16 18:58 Urine Methadone Screen Presumptive negative 11/10/16 18:58 Ur Barbiturates Screen Presumptive negative 11/10/16 18:58 Ur Phencyclidine Scrn Presumptive negative 11/10/16 18:58 Ur Amphetamines Screen Presumptive negative 11/10/16 18:58 U Benzodiazepines Scrn Presumptive negative 11/10/16 18:58 Urine Cocaine Screen Presumptive negative 11/10/16 18:58 U Marijuana (THC) Screen Presumptive negative 11/10/16 18:58 Drugs of Abuse Note Disclamer 11/10/16 18:58 Plasma/Serum Alcohol < 0.01 gm% (0-0.07) 11/10/16 18:10
[2016-11-15] MEDS: ROCEPHIN/NS 1 GM/50 ML 1 GM/50 ML BAG IV SCH (10:10)
[2016-11-15] MEDS: APRESOLINE IV PRN (10:11)
[2016-11-15] MEDS: LOVENOX SUB-Q SCH (10:11)
[2016-11-15] MEDS ORDERED: NORVASC PO SCH (12:00)
--- NOTE | 2016-11-15 15:50 | Discharge Summary ---
Providers - Providers Date of Admission: 11/11/16 03:03 Date of discharge: 11/15/16 Attending physician: KARTHIKEYAN THIBODEAUX 11/11/16 13:39 Consult to Wound/ET Nurse [CONS] Routine Reason For Exam: wound eval Primary care physician: [employer] Hospitalization Condition: Stable Disposition: DISCHARGED TO HOME OR SELFCARE Time spent for discharge: 35 min Core Measure Documentation - Palliative Care Palliative Care/ Comfort Measures: Palliative Care/Comfort Measures - Core Measures Any of the following diagnoses?: none Exam - Constitutional Vitals: Temp Pulse Resp BP Pulse Ox 98.5 F 75 20 162/79 99 11/15/16 14:50 11/15/16 14:50 11/15/16 14:50 11/15/16 14:50 11/15/16 07:40 Plan Activity: advance as tolerated, fall precautions Diet: low cholesterol, low salt Additional Instructions: dischaeged to his personal half-way with hospice Follow up with: PRIMARY CARE,MD [Primary Care Provider] - 3-5 Days (needs BMP checked in 3-5 days) Prescriptions: amLODIPine [Norvasc] 10 mg PO QDAY #30 tablet Bisacodyl [Dulcolax suppos] 10 mg SC QDAY PRN #20 supp.rect PRN Reason: Constipation unrelieved by MOM Potassium Chloride [Klor-Con M10] 10 meq PO DAILY #30 tab.er.prt
[2016-11-15 22:15] VITALS: BP 159/74
== END 2016-11-15 21:35 | disposition home or self-care (01) | DRG 100 ==
LOC: ED 15:01 → 3A 11-11 03:03
PROVIDERS: ADMIT Internal Medicine; ATTEND Internal Medicine
DX: R56.9 Unspecified convulsions (principal); G93.40 Encephalopathy, unspecified; I10 Essential (primary) hypertension; E11.9 Type 2 diabetes mellitus without complications; Z51.5 Encounter for palliative care; F03.90 Unspecified dementia, unspecified severity, without behavioral disturbance, psychotic disturbance, mood disturbance, and anxiety; J45.909 Unspecified asthma, uncomplicated; Z87.442 Personal history of urinary calculi
CPT/HCPCS: 36415; 70450; 80048; 80053; 80307; 80320; 81001; 82962; 84443; 85025; 93005; 93010; G0480; J0360; J0696; J1630; J1650; J1953; J2060; J3480; J7040